=== PATIENT | female | born 1955 | race Caucasian/White ===

== ENCOUNTER 2024-07-15 12:13 | Outpatient (CLI) | payer MEDICARE, MEDICAID ==
[~2024-07-15 12:13] MED LIST: ACET650T58 PO; ADV50100 IH; BACL10TA2 PO; CALC-952 PO; CELE-127 PO; MIRA25TA PO; OMEP20CA16 PO; SERT-434 PO; barium sulfate 340gm for oral suspension 1 BOTTLE SUSP.RECON PO ONE
== END 2024-07-15 23:59 | disposition home or self-care (01) ==
LOC: RAD 12:13
PROVIDERS: ATTEND Surgery
DX: K44.9 Diaphragmatic hernia without obstruction or gangrene (principal); K21.9 Gastro-esophageal reflux disease without esophagitis
CPT/HCPCS: 74220

== ENCOUNTER 2024-08-11 10:41 | Inpatient (IN) | payer MEDICARE, MEDICAID ==
[2024-08-02 10:46] LABS: BASOPHILS % (AUTO) 0.6 % (0-1); EOSINOPHILS # (AUTO) 0.3 X10'3 (0-0.9); EOSINOPHILS % (AUTO) 4.3 % (0-6); LYMPHOCYTES # (AUTO) 1.5 X10'3 (1.1-4.8); LYMPHOCYTES % (AUTO) 22.2 % (21-51); MEAN CORPUSCULAR HEMOGLOBIN 29.2 PG (27.0-31.0); MEAN CORPUSCULAR HGB CONC 32.8 g/dL (33.0-36.5); MEAN CORPUSCULAR VOLUME 88.9 FL (78-98); MEAN PLATELET VOLUME 8.3 FL (7.4-10.4); MONOCYTES # (AUTO) 0.6 X10'3 (0-0.9); MONOCYTES % (AUTO) 9.2 % (2-12); NEUTROPHILS # (AUTO) 4.4 X10'3 (1.8-7.7); NEUTROPHILS % (AUTO) 63.7 % (42-75); PRE OP HEMATOCRIT 38.8 % (35.0-45.0); PRE OP HEMOGLOBIN 12.7 g/dL (12.0-16.0); PRE OP PLATELET COUNT 254 X10'3 (140-440); PRE OP WHITE BLOOD COUNT 6.9 10'3 (4.8-10.8); RED BLOOD COUNT 4.36 X10'6 (4.20-5.60); RED CELL DISTRIBUTION WIDTH 15.5 % (11.5-14.5)
[2024-08-02 11:07] LABS: ALBUMIN 3.9 G/DL (3.4-5.0); ALKALINE PHOSPHATASE 146 IU/L (46-116); BLOOD UREA NITROGEN 31 MG/DL (7-18); BUN/CREATININE RATIO 23.7 (10.0-20.0); CALCIUM 9.2 MG/DL (8.5-10.1); CHLORIDE 106 MMOL/L (99-107); CREATININE 1.31 MG/DL (0.40-0.90); PRE OP ALT 25 U/L (30-65); PRE OP ANION GAP 11 (8-16); PRE OP AST 10 U/L (10-37); PRE OP BILIRUB, TOTAL 0.5 MG/DL (0.0-1.0); PRE OP GLUCOSE 90 MG/DL (70-104); PRE OP POTASSIUM 4.6 MMOL/L (3.4-5.1); PRE OP SODIUM 145 MMOL/L (135-145); TOTAL CARBON DIOXIDE 28.3 MMOL/L (24-32); TOTAL PROTEIN 7.9 G/DL (6.4-8.2); eGFR 40 ML/MIN
[2024-08-11] VITALS (39 sets, daily range): BP systolic 102–184; BP diastolic 56–100; PULSE 60–96; RESP 11–23; TEMP 97.4; O2SAT 90–100
[~2024-08-11] VITALS: Ht 162.6 cm; Wt 86.9 kg
[2024-08-11] MEDS: DOCUMENT DATE & TIME OF BETA-BLOCKER PO ONE (05:30)
[2024-08-11] MEDS: ceFAZolin 2gm in dextrose, iso 50 ML IV ONE (05:30)
[~2024-08-11 10:41] MED LIST changes: -ACET650T58 PO; -ADV50100 IH; +ASPI-611 PO; +ATEN50TA8 PO; +ATOR20TA66 PO; -CALC-952 PO; +DULO60CA65 PO; +ESOM40CA66 PO; +FLUT1BLS4 INH; +MULT-1085 PO; -SERT-434 PO; +[UNRECOGNIZED DRUG - OTHER] PO; -barium sulfate 340gm for oral suspension 1 BOTTLE SUSP.RECON PO ONE
[2024-08-11] MEDS: ringers solution, lacted 1,000 ML IV SCH ×2 (11:51→17:44)
[2024-08-11] MEDS: famotidine 20mg tablet PO ONE (11:51)
[2024-08-11] MEDS ORDERED: LIDOcaine 1% 30ml preserv. free vial ONE (15:07)
[2024-08-11] MEDS ORDERED: BUPIVAcaine 2.5mg/ml inj 50ml vial (contains preservative) ONE (15:07)
[2024-08-11] MEDS ORDERED: fentaNYL/PF 50MCG/1 ML 2ML syringe ONE (15:34)
[2024-08-11] MEDS ORDERED: midazolam 1 mg/ML 2ml injection ONE (15:35)
[2024-08-11] MEDS ORDERED: propofol inj 20 ML IV ONE (15:35)
[2024-08-11] MEDS ORDERED: rocuronium 10mg/ml inj IV ONE (15:35)
[2024-08-11] MEDS: BUPIVAcaine/PF 2.5 mg/ml (0.25%) 30ml vial IJ ONE (16:05)
[2024-08-11] MEDS ORDERED: meperidine/PF 25mg/ml syringe IV PRN ×2 (16:55)
[2024-08-11] MEDS ORDERED: HYDROmorphone/PF 0.2 MG/ML SYRINGE IV PRN ×2 (16:55)
[2024-08-11] MEDS ORDERED: ondansetron/PF 4mg/2ml inj ONE (17:16)
[2024-08-11] MEDS ORDERED: dexamethasone sod phosphate 4mg/ml inj. ONE (17:16)
[2024-08-11] MEDS ORDERED: sugammadex 200mg/2ml injection IV ONE (17:20)
[2024-08-11] MEDS ORDERED: acetaminophen 1,000mg/100ml IV 100 ML IV ONE (17:21)
[2024-08-11] MEDS: labetalol 20mg/4ml (5mg/ml) syringe IV PRN (17:41)
[2024-08-11] MEDS: ondansetron/PF 4mg/2ml inj IV PRN (17:54)
[2024-08-11] MEDS ORDERED: HYDROmorph/NS 0.2 mg/ml PCA 100 ML IV SCH ×2 (18:15→21:00)
[2024-08-11] MEDS ORDERED: normal saline 1000ml 1,000 ML IV SCH (18:15)
[2024-08-11] MEDS ORDERED: naloxone 0.4 mg/ml inj IV PRN ×2 (18:15)
[2024-08-11] MEDS: meperidine/PF 25mg/ml syringe IV PRN (18:18)
[2024-08-11] MEDS: scopolamine 1MG/72H patch 1 PATCH PATCH.TD.3 TD SCH (18:26)
[2024-08-11] MEDS: HYDROmorph/NS 0.2 mg/ml PCA 100 ML IV SCH (19:32)
[2024-08-11] MEDS: proCHLORperazine 10 MG/2 ml inj IV PRN (19:37)
[2024-08-11] MEDS: heparin, porcine 5000 units/ml vial SQ SCH (21:23)
[2024-08-11] MEDS: baclofen 10mg tablet PO SCH (21:28)
[2024-08-11] MEDS: hydrALAZINE 20mg/ml inj. IV PRN (22:16)
[2024-08-12 02:00] VITALS: BP_SYST 102; BP_SYST 148; BP_DIAS 76; BP_DIAS 83; PULSE 68; PULSE 93; RESP 16; RESP 17; TEMP 97.4; O2SAT 90; O2SAT 93
[2024-08-12] MEDS: ondansetron/PF 4mg/2ml inj IV PRN (03:02)
[2024-08-12] MEDS: potassium CL 20mEq in D5-1/2NS 1,000 ML IV SCH (03:49)
[2024-08-12 06:00] VITALS: BP 165/81; PULSE 102; RESP 16; TEMP 98.6; O2SAT 94
[2024-08-12] MEDS: Fluticasone/Umeclidin/Vilanter (Trelegy Ellipta 100-62.5-25) PO SCH (08:00)
[2024-08-12 08:20] VITALS: RESP 16; O2SAT 94
[2024-08-12] MEDS: duloxetine 30mg CAPSULE.DR PO SCH (09:54)
[2024-08-12] MEDS: atorvastatin 20mg tablet PO SCH (09:54)
[2024-08-12] MEDS: atenolol 50mg tablet PO SCH (09:56)
[2024-08-12 10:00] VITALS: BP 138/69; PULSE 100; RESP 18; TEMP 97.8; O2SAT 93
[2024-08-12] MEDS: PCA WASTE DOCUMENTATION 1 MG ML MC SCH (13:54)
[2024-08-12] MEDS: oxyCODONE/APAP 5-325mg tablet PO PRN (14:43)
[2024-08-12] MEDS ORDERED: PER5325T PO (15:42)
== END 2024-08-12 16:30 | disposition home or self-care (01) | DRG 328 ==
LOC: PAS 10:41 → ORTHO 4S 18:18
PROVIDERS: ADMIT Surgery; ATTEND Surgery
PROC: 0DQ64ZZ Repair Stomach, Percutaneous Endoscopic Approach (ICD-10-PCS; 2024-08-11)
PROC: 8E0W4CZ Robotic Assisted Procedure of Trunk Region, Percutaneous Endoscopic Approach (ICD-10-PCS; 2024-08-11)
PROC: 0BUT4JZ Supplement Diaphragm with Synthetic Substitute, Percutaneous Endoscopic Approach (ICD-10-PCS; principal; 2024-08-11 15:31)
DX: K44.9 Diaphragmatic hernia without obstruction or gangrene (principal)
CPT/HCPCS: 36415; 71045; 80053; 82948; 85025; 87081; 93005; A4615; A4618; A6258; A6449; C1781; G0378; J0131; J0360; J0690; J0780; J1100; J1171; J1644; J2003; J2175; J2250; J2405; J2704; J3010; J3480; J3490; J7040; J7120